=== PATIENT | female | born 1980 | race Caucasian/White ===

== ENCOUNTER 2017-10-09 21:57 | Emergency (ER) | payer OTHER ==
[~2017-10-09] VITALS: Ht 154.9 cm; Wt 85.7 kg
== END 2017-10-10 02:14 | disposition home or self-care (01) ==
LOC: ER 21:57
DX: J06.9 Acute upper respiratory infection, unspecified (principal); H10.89 Other conjunctivitis

== ENCOUNTER 2020-01-27 15:33 | Emergency (ER) | payer OTHER ==
[~2020-01-27] VITALS: Ht 162.6 cm; Wt 90.7 kg
[~2020-01-27 15:33] MED LIST: DOLOGESIC-DF 51 EACH PO
[2020-01-27] MEDS ORDERED: ORPHENADRINE C100 MG PO (18:03)
[2020-01-27] MEDS ORDERED: TORADOL60 MG IM (18:03)
== END 2020-01-27 19:57 | disposition home or self-care (01) ==
LOC: ER 15:33
DX: R07.89 Other chest pain (principal); M62.838 Other muscle spasm; R51.9 Headache, unspecified; Z03.89 Encounter for observation for other suspected diseases and conditions ruled out

== ENCOUNTER 2020-04-30 13:46 | Emergency (ER) | payer OTHER ==
[~2020-04-30] VITALS: Ht 154.9 cm; Wt 90.7 kg
[~2020-04-30 13:46] MED LIST changes: +ORPHENADRINE C100 MG PO; +TORADOL60 MG IM
== END 2020-04-30 18:51 | disposition home or self-care (01) ==
LOC: ER 13:46
DX: S42.252A Displaced fracture of greater tuberosity of left humerus, initial encounter for closed fracture (principal); S00.83XA Contusion of other part of head, initial encounter; W18.09XA Striking against other object with subsequent fall, initial encounter; Y93.89 Activity, other specified; Y92.018 Other place in single-family (private) house as the place of occurrence of the external cause; Y99.8 Other external cause status

== ENCOUNTER 2020-08-30 15:32 | Emergency (ER) | payer OTHER ==
[~2020-08-30] VITALS: Ht 154.9 cm; Wt 88.9 kg
[2020-08-30] MEDS ORDERED: PLAVIX75 MG (15:45)
[2020-08-30] MEDS ORDERED: ZESTRIL20 MG (15:45)
[2020-08-30] MEDS ORDERED: ATORVASTATIN CA20 MG (15:45)
[2020-08-30] MEDS ORDERED: SYNTHROID50 MCG (15:46)
[2020-08-30] MEDS ORDERED: CHILDREN'S ASPI81 MG (15:46)
[2020-08-30] MEDS ORDERED: NORVASC5 MG (15:46)
== END 2020-08-30 20:28 | disposition home or self-care (01) ==
LOC: ER 15:32 → CPU-OBS 16:22 → ER 20:28
DX: R07.89 Other chest pain (principal)
CPT/HCPCS: G0378; G0379; 93005

== ENCOUNTER 2020-12-16 09:30 | Outpatient (CLI) | payer OTHER ==
[~2020-12-16 09:30] MED LIST changes: +ATORVASTATIN CA20 MG; +CHILDREN'S ASPI81 MG; +NORVASC5 MG; +PLAVIX75 MG; +SYNTHROID50 MCG; +ZESTRIL20 MG
== END 2020-12-16 09:45 | disposition home or self-care (01) ==
LOC: PPH VACUNA 09:30
PROVIDERS: ATTEND Emergency Medicine Pediatric Emergency Medicine
DX: Z23 Encounter for immunization (principal)

== ENCOUNTER 2021-01-03 16:59 | Emergency (ER) | payer OTHER ==
[~2021-01-03] VITALS: Ht 172.7 cm; Wt 86.6 kg
[2021-01-03] MEDS ORDERED: VISTARIL50 MG (17:15)
== END 2021-01-03 21:14 | disposition home or self-care (01) ==
LOC: ER 16:59
DX: R42 Dizziness and giddiness (principal); R07.89 Other chest pain; E03.9 Hypothyroidism, unspecified; I10 Essential (primary) hypertension

== ENCOUNTER 2023-02-26 15:16 | Emergency (ER) | payer OTHER ==
[~2023-02-26] VITALS: Ht 167.6 cm; Wt 104.3 kg
[~2023-02-26 15:16] MED LIST changes: +VISTARIL50 MG
[2023-02-26] MEDS ORDERED: TYLENOL ARTHRI650 MG (15:42)
[2023-02-26] MEDS ORDERED: MEDROLPACK PO (20:08)
[2023-02-26] MEDS ORDERED: CYCLOBENZAPRINE10 MG PO (20:08)
== END 2023-02-26 20:40 | disposition home or self-care (01) ==
LOC: ER 15:17
DX: M54.50 Low back pain, unspecified (principal)

== ENCOUNTER 2023-12-05 09:34 | Outpatient (CLI) | payer OTHER ==
[~2023-12-05 09:34] MED LIST changes: +CYCLOBENZAPRINE10 MG PO; +MEDROLPACK PO; +TYLENOL ARTHRI650 MG
== END 2023-12-05 10:00 | disposition home or self-care (01) ==
LOC: MRI 09:34
PROVIDERS: ATTEND Internal Medicine Cardiovascular Disease
DX: I63.50 Cerebral infarction due to unspecified occlusion or stenosis of unspecified cerebral artery (principal); R51.9 Headache, unspecified; I10 Essential (primary) hypertension; J44.9 Chronic obstructive pulmonary disease, unspecified
CPT/HCPCS: 70551

== ENCOUNTER 2023-12-06 07:24 | Outpatient (CLI) | payer OTHER ==
[2023-12-06 09:17] LABS: HEMATOCRIT 33.2 % (36.0-45.00); HEMOGLOBIN 10.4 g/dL (12.0-15.00); MEAN CELL VOLUME 71.3 fL (80.00-100.00); MEAN CORPUSCULAR HEMOGLOBIN 22.4 pg (27.00-32.0); MEAN CORPUSCULAR HGB CONC 31.4 g/dl (32.0-36.0); PLATELET COUNT 329 K/uL (150-450); RED BLOOD COUNT 4.66 M/uL (4.00-6.00); RED CELL DISTRIBUTION WIDTH 18.3 % (11.5-14.5)
[2023-12-06 09:22] LABS: URINE APPEARANCE Clear; URINE BILIRRUBIN Negative (NEGATIVE); URINE BLOOD Moderate; URINE COLOR Yellow; URINE GLUCOSE Negative (NEGATIVE); URINE KETONE Negative (NEGATIVE); URINE LEUKOCYTE Negative; URINE NITRATE Negative; URINE PROTEIN 30 (NEGATIVE); URINE UROBILINOGEN 0.2 E.U./dl
[2023-12-06 09:24] LABS: ERYTHROCYTE SEDIMENTATION RATE 74 mm/hr
[2023-12-06 09:26] LABS: URINE BACTERIA 1986.8 uL (0.0-1933); URINE EPITHELIAL CELLS 30.9 uL (0.0-38.8); URINE RBC 90.2 uL (0.0-20.8); URINE WBC 18.6 uL (0.0-23.2)
[2023-12-06 09:37] LABS: URINE CAST 0.45 uL (0.0-1.40)
[2023-12-06 10:42] LABS: ALBUMIN 3.4 gm/dL (3.4-5.0); ALKALINE PHOSPHATASE 63 U/L (50-136); ALT/SGPT 16 U/L (12-78); ANION GAP 9 (10.0-20.0); AST/SGOT 14 U/L (15-37); BILIRUBIN TOTAL 0.62 mg/dL (0.3-1.2); BLOOD UREA NITROGEN 10 mg/dL (7-18); BUN CREA RATIO 13 (7.0-25.0); CALCIUM 8.7 mg/dL (8.5-10.1); CARBON DIOXIDE 29 mEq/L (21-32); CHLORIDE 108 mmol/L (98-107); CHOLESTEROL 178 mg/dL (0-200); CREATININE SERUM 0.77 mg/dL (0.55-1.02); GFR 81.82; GLOBULINA 3.8 G/DL (2.4-3.5); GLUCOSE FASTING 89 mg/dL (65-100); HDL 59 mg/dl (40-60); LDL 101 mg/dl (0-130); OSMOLALITY SERUM 282 MOSM/KG (275-295); POTASSIUM 3.85 mEq/L (3.5-5.1); SODIUM 142 mmol/L (136-145); T4 TOTAL 7.45 UG/DL (4.8-13.9); TOTAL PROTEIN 7.2 gm/dL (6.4-8.2); TRIGLYCERIDES 90 mg/dL (0-150); VLDL 18 (0-39)
[2023-12-06 10:43] LABS: C-REACTIVE PROTEIN < 0.29 MG/DL (0.00-0.29)
[2023-12-06 11:02] LABS: T3 TOTAL 1.18 ng/ml (0.846-2.02); VITAMIN D3 25 HYDROXY 17.17 ng/ml (30-120)
[2023-12-09 16:29] LABS: dRVVT 40.4 sec (0.0-47.0); interp Comment: (.); ptt-la 33.4 sec (0.0-43.5)
== END 2023-12-06 07:39 | disposition home or self-care (01) ==
LOC: LAB 07:24
PROVIDERS: ATTEND Internal Medicine Cardiovascular Disease
DX: E03.9 Hypothyroidism, unspecified (principal); I10 Essential (primary) hypertension; E11.9 Type 2 diabetes mellitus without complications; E78.2 Mixed hyperlipidemia; E55.9 Vitamin D deficiency, unspecified; M81.0 Age-related osteoporosis without current pathological fracture; M10.9 Gout, unspecified; M12.9 Arthropathy, unspecified; M19.90 Unspecified osteoarthritis, unspecified site; L93.2 Other local lupus erythematosus

== ENCOUNTER 2024-02-12 16:17 | Outpatient (CLI) | payer OTHER ==
[2024-02-12 17:31] LABS: MYCOPLASMA PNEUMONIAE IGM REACTIVE (NO REACTIVE)
[2024-02-12 17:34] LABS: HEMOGLOBIN 10.2 g/dL (12.0-15.00); MEAN CORPUSCULAR HEMOGLOBIN 21.5 pg (27.00-32.0); MEAN CORPUSCULAR HGB CONC 30.9 g/dl (32.0-36.0); PLATELET COUNT 360 K/uL (150-450); RED BLOOD COUNT 4.74 M/uL (4.00-6.00); RED CELL DISTRIBUTION WIDTH 17.3 % (11.5-14.5)
[2024-02-12 17:35] LABS: MEAN CELL VOLUME 69.6 fL (80.00-100.00)
== END 2024-02-12 16:28 | disposition home or self-care (01) ==
LOC: LAB 16:17 → CIR.AMB 16:17 → LAB 16:28
PROVIDERS: ATTEND Internal Medicine Cardiovascular Disease
DX: J11.1 Influenza due to unidentified influenza virus with other respiratory manifestations (principal); A49.3 Mycoplasma infection, unspecified site; Z20.822 Contact with and (suspected) exposure to COVID-19

== ENCOUNTER 2024-03-18 16:06 | Outpatient (CLI) | payer OTHER ==
[2024-03-18 16:45] LABS: HEMATOCRIT 33.6 % (36.0-45.00); HEMOGLOBIN 10.4 g/dL (12.0-15.00); MEAN CELL VOLUME 67.8 fL (80.00-100.00); MEAN CORPUSCULAR HGB CONC 30.9 g/dl (32.0-36.0); PLATELET COUNT 316 K/uL (150-450); RED BLOOD COUNT 4.95 M/uL (4.00-6.00)
[2024-03-18 17:01] LABS: MYCOPLASMA PNEUMONIAE IGM NON REACTIVE (NO REACTIVE)
== END 2024-03-18 16:17 | disposition home or self-care (01) ==
LOC: LAB 16:06
PROVIDERS: ATTEND Internal Medicine Cardiovascular Disease
DX: J11.1 Influenza due to unidentified influenza virus with other respiratory manifestations (principal); A49.3 Mycoplasma infection, unspecified site; Z20.822 Contact with and (suspected) exposure to COVID-19

== ENCOUNTER 2024-07-08 07:17 | Outpatient (CLI) | payer OTHER ==
[2024-07-08 08:48] LABS: BASO % 0.5 % (0.1-1.2); EOS # 0.68 (0.04-0.54); EOS % 7.7 % (0.7-7.0); HEMATOCRIT 33.6 % (34.1-44.9); HEMOGLOBIN 9.8 g/dL (11.2-15.7); LYMPH # 2.26 (1.18-3.74); LYMPH % 25.6 % (19.3-53.1); MEAN CORPUSCULAR HEMOGLOBIN 20.4 pg (25.6-32.2); MONO # 0.66 (0.24-0.82); MONO % 7.5 % (4.7-12.5); NEUT # 5.17 (1.56-6.13); NEUT % 58.4 % (34.0-71.1); PLATELET COUNT 339 K/uL (163-369); RED BLOOD COUNT 4.81 M/uL (3.93-5.22); RED CELL DISTRIBUTION WIDTH 17.2 % (11.6-14.4)
[2024-07-08 09:04] LABS: COVID-19 AG NEGATIVE (NEGATIVE); INFLUENZA A AG NEGATIVE (NEGATIVE)
[2024-07-08 09:09] LABS: PH,URINE 6.5 (5.0-8.0); URINE APPEARANCE Clear; URINE BILIRRUBIN Negative (NEGATIVE); URINE BLOOD Large; URINE COLOR Yellow; URINE GLUCOSE Negative (NEGATIVE); URINE KETONE Negative (NEGATIVE); URINE LEUKOCYTE Negative; URINE NITRATE Negative; URINE PROTEIN 30 (NEGATIVE); URINE UROBILINOGEN 0.2 E.U./dl
[2024-07-08 09:12] LABS: URINE BACTERIA 270.4 uL (0.0-1933); URINE EPITHELIAL CELLS 14.7 uL (0.0-38.8); URINE RBC 1773.1 uL (0.0-20.8); URINE WBC 17.4 uL (0.0-23.2)
[2024-07-08 09:15] LABS: URINE CAST 0.14 uL (0.0-1.40)
[2024-07-08 09:55] LABS: ALBUMIN 3.3 gm/dL (3.4-5.0); BILIRUBIN TOTAL 0.71 mg/dL (0.3-1.2); CALCIUM 8.6 mg/dL (8.5-10.1); CHOL HDL RATIO 2.3 (0-5.0); CREATININE SERUM 0.79 mg/dL (0.55-1.02); GFR 79.06; POTASSIUM 4.23 mEq/L (3.5-5.1); T4 TOTAL 7.38 UG/DL (4.8-13.9); TOTAL PROTEIN 7.3 gm/dL (6.4-8.2); TSH 3.53 uIU/mL (0.358-3.74)
[2024-07-08 11:52] LABS: MYCOPLASMA PNEUMONIAE IGM NON REACTIVE (NO REACTIVE)
== END 2024-07-08 07:30 | disposition home or self-care (01) ==
LOC: LAB 07:17
PROVIDERS: ATTEND Internal Medicine Cardiovascular Disease
DX: J11.1 Influenza due to unidentified influenza virus with other respiratory manifestations (principal); A49.3 Mycoplasma infection, unspecified site; Z20.822 Contact with and (suspected) exposure to COVID-19; I10 Essential (primary) hypertension; E11.9 Type 2 diabetes mellitus without complications; E03.9 Hypothyroidism, unspecified